=== PATIENT | female | born 1945 | race Caucasian/White ===

== ENCOUNTER 2021-11-11 08:01 | Inpatient (IN) | payer MEDICARE, OTHER ==
[2021-11-04 11:04] LABS: BASOPHILS # (AUTO) 0.1 X10'3 (0-0.2); BASOPHILS % (AUTO) 0.8 % (0-1); EOSINOPHILS # (AUTO) 0.1 X10'3 (0-0.9); EOSINOPHILS % (AUTO) 1.7 % (0-6); LYMPHOCYTES % (AUTO) 28.5 % (21-51); MEAN CORPUSCULAR HGB CONC 33.6 g/dL (33.0-36.5); MEAN CORPUSCULAR VOLUME 89.3 FL (78-98); MEAN PLATELET VOLUME 8.6 FL (7.4-10.4); MONOCYTES # (AUTO) 0.6 X10'3 (0-0.9); NEUTROPHILS # (AUTO) 4.4 X10'3 (1.8-7.7); PRE OP HEMOGLOBIN 13.5 g/dL (12.0-16.0); PRE OP PLATELET COUNT 285 X10'3 (140-440); RED BLOOD COUNT 4.48 X10'6 (4.20-5.60)
[2021-11-04 11:18] LABS: ALBUMIN 3.7 G/DL (3.4-5.0); ALKALINE PHOSPHATASE 46 IU/L (46-116); BLOOD UREA NITROGEN 19 MG/DL (7-18); BUN/CREATININE RATIO 28.4 (6.6-38.0); CALCIUM 9.1 MG/DL (8.5-10.1); CHLORIDE 104 MMOL/L (99-107); CREATININE 0.67 MG/DL (0.40-0.90); PRE OP ALT 31 U/L (30-65); PRE OP ANION GAP 8 (8-16); PRE OP AST 16 U/L (10-37); PRE OP BILIRUB, TOTAL 0.3 MG/DL (0.0-1.0); PRE OP GLUCOSE 110 MG/DL (70-104); PRE OP POTASSIUM 4.2 MMOL/L (3.4-5.1); PRE OP SODIUM 141 MMOL/L (135-145); TOTAL CARBON DIOXIDE 28.8 MMOL/L (24-32); TOTAL PROTEIN 7.5 G/DL (6.4-8.2); eGFR 86 ML/MIN
[~2021-11-11] VITALS: Ht 154.9 cm; Wt 69.6 kg
[2021-11-11] VITALS (16 sets, daily range): BP systolic 122–155; BP diastolic 63–89
[~2021-11-11 08:01] MED LIST: CHOL100025 PO; DOCU100C40 PO; GABA-534 PO; LEVO75TA7 PO; MELA3TAB41 PO; POLY17PO10 PO; TRAM50TA2 PO; VITA-268 PO; cefazolin/dext.iso 2gm/50ml IV ONE; famotidine 20mg tablet PO ONE; ringers solution, lacted 1,000 ML IV SCH; tranexamic acid 650mg tablet PO ONE; vancomycin/NS 1 GM in NS 250 ML IV ONE
[2021-11-11] MEDS ORDERED: ketorolac trometh. 30mg/ml inj. ONE (11:38)
[2021-11-11] MEDS ORDERED: ROPIVAcaine 0.5% (5mg/ml) 30ml vial ONE ×2 (11:38→13:18)
[2021-11-11] MEDS ORDERED: MIDAZolam 1 MG/ML 5ML VIAL ONE (12:55)
[2021-11-11] MEDS ORDERED: FENTANYL CITRATE/PF 50 MCG/1 ML VIAL ONE (12:55)
[2021-11-11] MEDS ORDERED: propofol inj 20 ML IV ONE (13:18)
[2021-11-11] MEDS ORDERED: ceFAZolin 1000mg inj ONE (13:45)
[2021-11-11] MEDS ORDERED: ondansetron/PF 4mg/2ml inj IV PRN ×2 (14:15→14:50)
[2021-11-11] MEDS ORDERED: morphine 4 MG/ML inj SYRINge IV PRN (14:15)
[2021-11-11] MEDS ORDERED: ROPIVAcaine 0.2%/PF PUMP/bolus 545 ML INTERSCALE SCH (14:15)
[2021-11-11] MEDS ORDERED: meperidine/PF 25mg/ml syringe IV PRN ×3 (14:15)
[2021-11-11] MEDS ORDERED: ROPIVAcaine 0.2% (10 MG/5 ML) BOLUS INJECTION INTERSCALE PRN (14:15)
[2021-11-11] MEDS ORDERED: morphine 2 MG/ML inj. syringe IV PRN (14:15)
[2021-11-11] MEDS ORDERED: ringers solution, lacted 1,000 ML IV SCH (14:15)
[2021-11-11] MEDS ORDERED: proCHLORperazine 10 MG/2 ml inj IV PRN (14:15)
[2021-11-11] MEDS ORDERED: dexamethasone sod phosphate 4mg/ml inj. ONE (14:30)
[2021-11-11] MEDS ORDERED: ondansetron/PF 4mg/2ml inj ONE (14:30)
[2021-11-11] MEDS ORDERED: bisacodyl 10mg suppository rectal RC PRN (14:50)
[2021-11-11] MEDS ORDERED: magnesium hydroxide 30ml (MOM) UD suspension PO PRN (14:50)
[2021-11-11] MEDS ORDERED: HYDROmorphone inj. 0.5 MG/0.5 ML DISP.SYRIN IV PRN (14:50)
[2021-11-11] MEDS ORDERED: oxyCODONE IR 5mg (immed. release) tablet PO PRN ×2 (14:50)
[2021-11-11] MEDS ORDERED: acetaminophen 325mg tablet PO PRN (14:50)
[2021-11-11] MEDS ORDERED: HYDROmorphone 1 mg/ml syringe IV PRN (14:50)
[2021-11-11] MEDS ORDERED: HYDROcodone/acetaminophen 10/325mg tab PO PRN (14:50)
[2021-11-11] MEDS ORDERED: diphenhydrAMINE 25mg capsule PO PRN ×2 (14:50)
--- NOTE | 2021-11-11 14:51 | NUR ---
Received from OR via BED, accompanied by Anesthesiologist DR RAY and report given by Anesthesiolgist. PATIENT IS RESTING BUT ABLE TO SEPAK. VSS. SLING ON LEFT SHOULDER WITH POWDER PACK. 20G PIV IN RAC. SCD'S ON. LR RUNNING. MASK ON 10 LITERS. Addendum: 11/11/21 at 1522 by Albina Pina RN Amended: Links added.
--- NOTE | 2021-11-11 16:31 | NUR ---
PATIENT MEETS DISCHARGE CRITERIA. VSS. STATES NO PAIN. DRESSING CDI. ON Q PUMP SET AND PATIENT EDUCATED. EDUCATED PATIENT ON IMPORTANCE OF INCENTIVE SPIROMETER USE. TWO ORDERLIES TRANSFERRED PATIENT TO THE FLOOR. CALLED REPORT TO FRANCOISE NOONAN, ALL QUESTIONS ASKED EXCEPT DIET ORDER. SHE WAS INSTRUCTED TO CHECK THE CHART FOR THE DIET ORDER. Addendum: 11/11/21 at 1648 by Albina Pina RN Amended: Links added.
--- NOTE | 2021-11-11 16:40 | NUR ---
Received from RR via BED, accompanied by NURSE and report given by THE RN PATIENT IS RESTING BUT ABLE VOICE NEEDS. VSS. SLING ON LEFT SHOULDER WITH POWDER PACK. 20G PIV IN RA.NQ IN PLACE AT 2.
[2021-11-11] MEDS: potassium cl 20mEq in 1/2 NS 1,000 ML IV SCH ×2 (17:13→22:52)
[2021-11-11] MEDS: ceFAZolin/D5W- 1GM premix 50 ML IV SCH (17:49)
[2021-11-11] MEDS ORDERED: vancomycin/NS 1 GM ADD-VANTAGE 250 ML IV SCH (20:00)
[2021-11-11] MEDS ORDERED: ALPRAZolam 0.25mg tablet PO PRN (20:25)
[2021-11-11] MEDS: traMADol 50MG tablet PO SCH (20:42)
[2021-11-11] MEDS: gabapentin 400mg capsule PO SCH (20:42)
[2021-11-11] MEDS: acetaminophen 325mg tablet PO SCH (20:43)
[2021-11-11] MEDS ORDERED: docusate sod 100mg capsule PO SCH (21:00)
[2021-11-11] MEDS ORDERED: sennosides 8.6mg tablet PO SCH (21:00)
[2021-11-11] MEDS ORDERED: polyethylene glycol 3350 17gm powd pack PO SCH (21:00)
[2021-11-11] MEDS ORDERED: Melatonin 3mg tablet PO SCH (21:00)
[2021-11-12] VITALS: BP 115/62
[2021-11-12] MEDS: ceFAZolin/D5W- 1GM premix 50 ML IV SCH (00:34)
[2021-11-12] MEDS: potassium cl 20mEq in 1/2 NS 1,000 ML IV SCH (01:52)
[2021-11-12] MEDS: acetaminophen 325mg tablet PO SCH ×2 (02:00→07:30)
[2021-11-12 07:04] LABS: BASOPHILS % (AUTO) 0.3 % (0-1); EOSINOPHILS % (AUTO) 0.2 % (0-6); HEMATOCRIT 33.4 % (35.0-45.0); HEMOGLOBIN 11.1 g/dl (12.0-16.0); LYMPHOCYTES # (AUTO) 2.2 X10'3 (1.1-4.8); LYMPHOCYTES % (AUTO) 14.8 % (21-51); MEAN CORPUSCULAR HEMOGLOBIN 29.8 PG (27.0-31.0); MEAN CORPUSCULAR HGB CONC 33.2 g/dL (33.0-36.5); MEAN PLATELET VOLUME 9.1 FL (7.4-10.4); MONOCYTES # (AUTO) 0.8 X10'3 (0-0.9); MONOCYTES % (AUTO) 5.4 % (2-12); NEUTROPHILS # (AUTO) 11.9 X10'3 (1.8-7.7); NEUTROPHILS % (AUTO) 79.3 % (42-75); PLATELET COUNT 255 X10'3 (140-440); RED BLOOD COUNT 3.71 X10'6 (4.20-5.60); RED CELL DISTRIBUTION WIDTH 13.2 % (11.5-14.5); WHITE BLOOD COUNT 14.9 X10'3 (4.5-11.0)
[2021-11-12 07:20] LABS: ANION GAP 10 (8-16); CHLORIDE 108 MMOL/L (99-107); POTASSIUM 4.1 MMOL/L (3.5-5.1); SODIUM 142 MMOL/L (135-145); TOTAL CARBON DIOXIDE 24.5 MMOL/L (24-32)
[2021-11-12] MEDS: traMADol 50MG tablet PO SCH (07:29)
[2021-11-12] MEDS: gabapentin 400mg capsule PO SCH (07:29)
[2021-11-12] MEDS ORDERED: cholecalciferol (vitamin D3) 1,000 unit (25mcg) tablet PO SCH (08:00)
[2021-11-12] MEDS ORDERED: levoTHYROXINE 75mcg tablet PO SCH (08:00)
[2021-11-12] MEDS ORDERED: vitamin B comp w/Vit. C tab 1 TAB TABLET PO SCH (08:00)
[2021-11-12] MEDS ORDERED: aspirin 325mg tablet PO SCH (08:30)
[2021-11-12 08:31] VITALS: BP 129/75
--- NOTE | 2021-11-12 11:18 | NUR ---
Joint Surgery Consult: Pt s/p L shoulder surgery this admit. Pt seen by KERRIE for written/verbal high protein ed w/ RD contact information provided. KERRIE encouraged pt to contact dietitian's office if further questions/concerns. Addendum: 11/12/21 at [address] Amended: Links added.
[2021-11-13] MEDS ORDERED: acetaminophen 325mg tablet PO PRN (14:50)
== END 2021-11-12 11:07 | disposition home or self-care (01) | DRG 483 ==
LOC: PAS IN 08:01 → SUR 3N 16:45
PROVIDERS: ADMIT Orthopaedic Surgery; ATTEND Orthopaedic Surgery
PROC: 0LS40ZZ Reposition Left Upper Arm Tendon, Open Approach (ICD-10-PCS; 2021-11-11)
PROC: 0RRK0JZ Replacement of Left Shoulder Joint with Synthetic Substitute, Open Approach (ICD-10-PCS; principal; 2021-11-11 12:44)
DX: M19.012 Primary osteoarthritis, left shoulder (principal); G89.29 Other chronic pain; M65.812 Other synovitis and tenosynovitis, left shoulder
CPT/HCPCS: 36415; 80051; 80053; 82948; 84443; 85025; 87081; 97110; 97161; A4565; A4618; A7000; C1713; C1776; G0378; J0690; J1100; J1885; J2250; J2405; J2704; J2795; J3010; J3370; J3480; J3490; J7120; U0003; U0005